=== PATIENT | male | born 1935 | race African-American/Black ===

== ENCOUNTER 2017-10-22 19:25 | Emergency (ER) | payer OTHER ==
[~2017-10-22] VITALS: Ht 198.1 cm; Wt 74.3 kg
[2017-10-22 21:23] LABS: BASOPHILS % 1.1 % (0.0-2.0); HEMATOCRIT. 41.6 % (42.0-52.0); HEMOGLOBIN. 13.7 g/dL (14.0-18.0); LYMPHOCYTES % 21.2 % (20.0-50.0); MEAN CORPUSCULAR HEMOGLOBIN 30.3 pg (28.0-32.0); MEAN CORPUSCULAR VOLUME 91.9 fL (80.0-94.0); MEAN PLATELET VOLUME 8.4 fl (7.4-10.4); MONOCYTES % 12.2 % (2.0-8.0); NEUTROPHILS % 64.5 % (40.0-76.0); PLATELET 275 x1000/uL (130-400); RED BLOOD CELL COUNT 4.53 mill/uL (4.7-6.1); RED CELL DISTRIBUTION WIDTH 13.9 % (11.6-14.6)
[2017-10-22 21:28] LABS: CLARITY URINE CLOUDY (CLEAR); COLOR URINE YELLOW (YELLOW); KETONES URINE NEGATIVE (NEGATIVE); LEUKOCYTE ESTERASE URINE 3+ (NEGATIVE); NITRITE URINE NEGATIVE (NEGATIVE); OCCULT BLOOD URINE 2+ (NEGATIVE); PH URINE 8.5 (4.5-8.0); PROTEIN URINE 3+ (NEGATIVE); SPECIFIC GRAVITY URINE 1.009 (1.005-1.030); UROBILINOGEN URINE 0.2 E.U./dL (0.2-1.0)
[2017-10-22 21:28] LABS: CHLORIDE 106 mEq/L (98-107)
[2017-10-22] MEDS ORDERED: CEFTRIAXONE 1 G PREMIX 50 ML IV NR (22:45)
[2017-10-23 00:06] VITALS: BP 136/71
== END 2017-10-23 00:07 | disposition home or self-care (01) ==
LOC: ER 20:32
DX: N39.0 Urinary tract infection, site not specified (principal); E86.0 Dehydration; R79.89 Other specified abnormal findings of blood chemistry; Z88.2 Allergy status to sulfonamides; Z96.649 Presence of unspecified artificial hip joint
CPT/HCPCS: 36415; 80053; 81003; 83690; 85025; 85610; 96365; 99285; J0696